=== PATIENT | female | born 1985 | race Caucasian/White ===

== ENCOUNTER 2024-02-15 00:53 | Day surgery (SDC) | payer OTHER, SELFPAY ==
[2024-02-04 14:28] VITALS: BMI 60.1
--- NOTE | 2024-02-04 14:29 | PC.NURSE ---
Report to the Outpatient Waiting Room, entrance under the green pavilion located off [facility], at time _1030_ on date _[id number]_. Planned Procedure Time: _1230_.? Time changes happen often and if your time is changed the preop area will call you the afternoon before. - You and your visitor will be asked to self-screen and do not enter if you have any COVID symptoms. Please call surgeon if you need to reschedule. - A mask is optional within the hospital at this time. Patients may have clear liquids (water, carbonated beverages, clear teas, apple juice) until 3 hours prior to surgery with a maximum of 20 ounces. - No food from midnight until time of surgery and no smoking Take only the following medications with a SIP of water on the morning of surgery: ____Bupropion, Duloxetine, Levothyroxine, and Ashlyna ____ DO NOT STOP ANY OF YOUR OTHER PRESCRIPTION MEDICATIONS PRIOR TO SURGERY EXCEPT THE FOLLOWING Medications to discontinue per physician ___Vitamin d3 Date to take last huvp__[id number] Gsxi skip Thursday's dose of Ozempic next week, No Ozempic for 10 days prior to surgery.. Please no make-up, nail ukrainian, hairspray, perfume, deodorant, or body powder the day of surgery.? No jewelry (including any body piercings) or valuables the day of surgery, leave them at home.? Please take a shower or bath the night before, or the morning of, surgery with an antibacterial soap.? Wear comfortable, loose fitting clothing.? - Jewelry must be removed prior to entering the operating room.? Rings and piercings that are not removed may be cut off. - The hospital will not accept responsibility for valuables.? - Please leave all valuables, including medications, at home the day of surgery. If you are going home after surgery, a licensed explosives truck driver must drive you home.? - NO public transportation without another adult if you receive anesthesia. - We recommend that an adult stay with you for 24 hours following discharge. - We also recommend that you do not drive, make important decision, drink alcoholic beverages, or take any drugs that were not prescribed by your health care provider for at least 24 hours after your discharge time. Follow any additional instructions given to you from your surgeon. Telephone instructions given to __Monserrat__and asked if any additional questions and then verbalized understanding. Patient advised to call surgeon office or pre surgery nurse liaison [phone] if any additional questions.
[2024-02-15] VITALS (8 sets, daily range): BP systolic 115–161; BP diastolic 78–104; PULSE 58–93; RESP 10–18; TEMP 36.2–36.4; O2SAT 97–100
--- NOTE | 2024-02-15 06:38 | WPDHPUPDATE1 ---
History and Physical Update Update Date/Time: 02/15/24 06:38 History and Physical has been reviewed, including an updated exam of the patient. There are NO changes in the patient's condition. Risks, benefits, and alternatives have been discussed and questions answered. Patient agrees to proceed with hysteroscopy with D&C .
[2024-02-15] MEDS: ACETAMINOPHEN 500 MG TABLET 1000 MG PO (11:55)
[2024-02-15] MEDS: LACTATED RINGERS 1,000 ML 30 ML IV CONT (11:55)
--- NOTE | 2024-02-15 12:17 | WPDANESEPPF ---
Anes - Initial Pre Proc Eval Procedure: Operation Date: 02/15/24 12:30 Proposed Procedures p Hysteroscopy Dilation and Curettage - Krystal Miles MD Date/Time: 02/15/24 12:17 Surgeon: Krystal Miles MD Pre Op Diagnosis: abnormal uterine bleeding Patient Data Age: 38 Gender: F Height: 1.63 m Weight: 155.7 kg Last Vital Signs Temp 36.2 C L 02/15/24 12:02 Pulse 93 02/15/24 12:02 Resp 14 02/15/24 12:02 BP 154/90 H 02/15/24 12:02 Pulse Ox 99 02/15/24 12:02 O2 Del Method Room Air 02/15/24 12:02 Allergies Allergy/AdvReac Type Severity Reaction Status Date / Time ciprofloxacin [From Cipro] Allergy Severe breathing Verified 02/15/24 12:07 issues hydrocodone [From Vicodin] AdvReac Mild Vomiting Verified 02/15/24 12:07 Home Medications Medication Instructions Recorded Confirmed Type multivitamin 1 tablet PO DAILY 07/16/21 02/04/24 History L norgest/E estradiol-E estrad 1 tablet PO DAILY #182 ea 06/09/23 02/15/24 Rx 0.15 mg-30 mcg (84)/10 mcg(7) tabs,3mos (Ashlyna) duloxetine 30 mg capsule,delayed 30 mg PO DAILY #90 caps 09/24/23 02/15/24 Rx release (Cymbalta) semaglutide 1 mg/dose (4 mg/3 mL) 1 mg (0.75 mL) subcut WEEKLY #12 mL 10/13/23 02/15/24 Rx subcutaneous pen injector (Ozempic) triamcinolone acetonide 0.5 % 1 applic topical BID #15 grams 12/14/23 02/04/24 Rx topical cream bupropion HCl 300 mg 24 hr tablet, See Rx Instructions .Route 12/15/23 02/15/24 Rx extended release .COMPLEX #90 tabs levothyroxine 150 mcg tablet 150 mcg PO DAILY #90 tabs 01/13/24 02/15/24 Rx cholecalciferol (vitamin D3) 25 25 mcg PO DAILY 02/04/24 02/04/24 History mcg (1,000 unit) capsule (Vitamin D3) Patient hx anesthesia problems: none Family hx anesthesia problems: none Results Review: All pre-operative results and documents have been reviewed as part of the pre-operative evaluation. [facility] Past Medical History Medical History Anxiety Hypothyroid Surgical History Surgical History History of History of colposcopy normal per pt - nm Family History Family History Father No problems noted. Mother No problems noted. Sibling No problems noted. 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 Gender identity (if verbalized by the patient): Female Sexual Orientation (if Verbalized by the Patient): Straight or Heterosexual Spiritual care concerns: No Anes - Eval Final PreProcedure Day of Procedure 02/15/24 12:17 Patient weight: super morbidly obese Heart: regular rate and rhythm Lungs: clear to auscultation Airway: Mallampati scale class II Neurological: alert and oriented Last oral intake: >/= 8 hours ASA classification: III Emergent: no Anesthetic plan: proceed Anesthesia type and monitoring: general GIVS and standard monitoring Results Review: All pre-operative results and documents have been reviewed as part of the pre-operative evaluation. Informed Consent: The patient's anesthetic plan and its attendant risks and benefits were discussed with the
--- NOTE | 2024-02-15 13:33 | W.PM.PROC2 ---
Procedure Note - Detailed Date of Procedure 02/15/24 Pre-op Diagnosis abnormal uterine bleeding Post-op Diagnosis Same Procedure Performed Operative hysteroscopy with endometrial shavings Surgeon Krystal Miles MD Anesthesia General Findings Long vagina due to body habitus. Small, normal appearing cervix. Anteverted uterus, bilateral tubal ostia visualized. Thickened endometrium, shavings obtained as curette device was not long enough to obtain endometrial sample. Good hemostasis at end of case. Fluid deficit: 80cc. Description of Procedure Monserrat was taken to the operating room where she was placed under general endotracheal anesthesia without complications. She was then prepped and draped in the usual sterile fashion in the dorsal lithotomy position with her legs in low Gerry stirrups. A time-out was performed and no perioperative antibiotics were indicated. A bivalve speculum was placed within the vagina where the cervix was easily identified. The anterior lip of the cervix was grasped with a single-tooth tenaculum. The cervix was then serially dilated to allow for the hysteroscope. The hysteroscope was advanced into the uterine cavity with the above findings noted. The Aveta shaver was used to obtain endometrial sampling. Good hemostasis was noted. All instruments were removed from the vagina. Sponge, lap, instrument, and needle counts were correct at the end of the procedure. Patient was awoken from anesthesia and taken to recovery with plans of same-day discharge home. Estimated Blood Loss 10 IV Fluids 700 Pathology Yes (endometrial shavings) Complications No immediate complications Condition Stable Disposition Same day [facility] Billing Surgery - Charge Forward: Surgery Billing
== END 2024-02-15 15:32 | disposition home or self-care (01) ==
PROVIDERS: PCP Family Medicine; Visit Provider Obstetrics & Gynecology
PROC: 0U5B8ZZ Destruction of Endometrium, Via Natural or Artificial Opening Endoscopic (ICD-10-PCS; CPT 58563; principal; 2024-02-15 12:30)
DX: R93.89 Abnormal findings on diagnostic imaging of other specified body structures (principal); F41.9 Anxiety disorder, unspecified; E03.9 Hypothyroidism, unspecified; E66.01 Morbid (severe) obesity due to excess calories; Z68.43 Body mass index [BMI] 50.0-59.9, adult; Z98.890 Other specified postprocedural states; Z79.85 Long-term (current) use of injectable non-insulin antidiabetic drugs; Z80.7 Family history of other malignant neoplasms of lymphoid, hematopoietic and related tissues
CPT/HCPCS: 58558; 88305; A9270; J1100; J2250; J2405; J2704; J3010; J7120

== ENCOUNTER 2024-08-03 14:43 | Outpatient (CLI) | payer OTHER, SELFPAY ==
--- NOTE | ~2024-08-03 | MM_ITS ---
EXAMINATION: MM screening haresh BI w jocelyn HISTORY: Screening mammogram TECHNIQUE: Craniocaudal and mediolateral oblique 3-D tomosynthesis images were obtained and synthetic 2-D images were generated. CAD analysis was submitted and interpreted. COMPARISON: No prior mammogram is available for comparison at this institution. BREAST PARENCHYMAL COMPOSITION:Not Dense. The breasts are almost entirely fatty FINDINGS: No suspicious mass, calcification, or architectural distortion are identified in either davin ast to suggest malignancy. There has been no suspicious interval change. IMPRESSION: No mammographic evidence of malignancy. Recommend routine screening mammography in one year. BI-RADS Category 1: Negative Reviewed, dictated and finalized at location . GRATION SOFTWARE DEVELOPER
== END 2024-08-03 14:44 | disposition home or self-care (01) ==
LOC: MICIMG 14:44
PROVIDERS: PCP Family Medicine; Visit Provider Obstetrics & Gynecology
DX: Z12.31 Encounter for screening mammogram for malignant neoplasm of breast (principal)
CPT/HCPCS: 77063; 77067

== ENCOUNTER 2024-09-27 09:56 | Outpatient (CLI) | payer OTHER, SELFPAY ==
--- NOTE | ~2024-09-27 | XR_ITS ---
Supine and upright views of the abdomen Clinical history: Renal stone Findings: Bowel gas pattern is nonspecific. No evidence for obstruction or free air. No abnormal mass lesion or calcification is seen. Excreted contrast present in the renal collecting systems and urina ry bladder. Osseous structures are intact. Impression: No definite stone seen, but evaluation is markedly limited due to excreted contrast material in the r enal collecting systems and bladder. Reviewed, dictated and finalized at location M. Impression: No definite stone seen, but evaluation is markedly limited due to excreted cont rast material in the renal collecting systems and bladder.
--- NOTE | ~2024-09-27 | CT_ITS ---
CT abdomen pelvis wo/w con Ordering provider: No Gutiérrez [facility] History: 38 years Female with . R10.9 - Unspecified abdominal pain . Comparison: None. Technique: CT abdomen and pelvis with IV and without oral contrast. Automated exposure control and it erative reconstruction technique were employed. The dose-length product was 3426.39 mGy-cm. 130 mL Om nipaque 350 was given IV. Findings: VISUALIZED LOWER CHEST: Focal area of atelectasis versus pneumonia seen in the left lung base. UPPER ABDOMINAL ORGANS: Liver: Slightly enlarged. Gallbladder: Normal. Spleen: Normal. Stomach/duodenum: Normal. Pancreas: Normal. Adrenals: Normal. Kidneys: Possible tiny hyperdensity in the left ureterovesical junction area which may be a stone. Mi nimal fat stranding around the left ureter is noted. Parapelvic cysts are noted in the left kidney. PELVIC ORGANS: The bladder is underfilled. BOWEL AND MESENTERY: Colon: No evidence of diverticulitis. Normal appendix. Small Bowel: Normal. No obstruction. Peritoneum/mesentery: No free air or free fluid. No mesenteric lymphadenopathy. RETROPERITONEUM: Normal aorta. No retroperitoneal lymphadenopathy. MUSCULOSKELETAL: Superficial soft tissues: The superficial soft tissues are normal. Bones: Normal spine. Degenerative disc disease at the level of L5-S1. Sclerotic lesion in the left il iac bone most likely bone island. Follow-up advised. Bilateral sacroiliitis. IMPRESSION: 1. Possible tiny stone in the left ureterovesical junction with fat stranding around the ureter. 2. Left parapelvic renal cysts. 3. Slight hepatomegaly. Reviewed, dictated and finalized at location A.
--- OUTSIDE RECORDS SUMMARY | 2024-09-27 11:04 | XMS_ITS | Clinical Summary ---
Author Organization [facility] Address [facility] [place] [address] Care Team Providers Care Sweet Goods Machine Operator Name Role Phone Unavailable Primary Care Provider Unavailabl e Social History Tobacco Use Types Packs/Day Years Used Date Smoking Tobacco: Never Assessed Comments Unknown Sex and Gender Information Value Date Recorded Sex Assigned at Not on file Legal Sex Female 4:08 PM CDT Gender Identity Not on file Sexual Orientation Not on file Plan of Treatment Health Maintenance Due Date Last Done Comments Cervical Cancer Screening Pa p Smear (Age 30 to 64) Every 3 Years 1983 Annual Physical 11/30/1986 Hepatitis C 11/30/2001 DTaP, Tdap and Td Vaccines ( 1 - Tdap) 11/30/2002 Hepatitis B Vaccines (1 of 3 - 19+ 3-dose series) 11/30/2002 Cervical Cancer Screening Pa p with HPV Testing (Age 30 to 64) Every 5 Years 11/30/2013 Cervical Cancer Screening with HPV 11/30/2013 Mammogram Screening 2023 COVID-19 Vaccine ( - 2023-2 5 season) 2024 HPV Vaccines Aged Out No longer eligi ble based on patient's age to complete this topic Meningococcal B Vaccine Aged Out No l onger eligible based on patient's age to complete this topic Meningococcal Vaccine Aged Out No nik lokesh eligible based on patient's age to complete this topic Pneumococcal Vaccine: Pediat rics (0 to 5 Years) and At-Risk Patients (6 to 49 Years) Aged Out No longer eligible b ased on patient's age to complete this topic RSV Immunizations Under 20 Months Aged Out No longer eligible based on patient's age to complete this topic
--- OUTSIDE RECORDS SUMMARY | 2024-09-27 11:04 | XMS_ITS | Clinical Summary ---
Author Organization [facility] Address [address] [place] [address] Phone Care Team Providers Care Cargo Agent Name Role Phone Navin Miller MD Primary Care Provide r Allergies Active Allergy Reactions Criticality Noted Date Comments Ciprofloxacin-Ciprof lox Hcl Er Other (see Comments) 02/16/2008 Breathing problems Hydrocodone-Acetamin ophen Nausea,Vomiting 06/27/2014 Medications ibuprofen (MOTRIN) 600 MG Tablet Take 600 mg by mouth daily as needed for Pain (headaches). Active ASHLYNA 0.15-0.03 &0.01 MG Tablet Take 1 Tab by mouth daily. 4 02/11/2018 Active fluticasone (FLONASE) 50 MCG/ACT SuspensionIndica tions:Upper respiratory tract infection, unspecified type 1-2 Sprays by Nasal route daily. Use in each nostril as directed. 3 Bottle 3 03/19/2018 Active levothyroxine (SYNTHROID) 150 MCG TabletIndication s:Hypothyroidism due to acquired atrophy of thyroid TAKE ONE TABLET BY MOUTH EVERY DAY 90 Tablet 3 12/21/2020 Active Active Problems Problem Noted Date Diagnosed Date Other fatigue 02/10/2020 Screening for hyperlipidemia 02/10/2020 Hypothyroidism due to acquired atrophy of thyroi d 06/04/2015 Depression 06/04/2015 Obesity, morbid, BMI 50 or higher 09/29/2014 Resolved Problems Problem Noted Date Diagnosed Date Resolved Date Indication for care in labor or delivery 09/29/2014 06/04/2015 Overview (09/29/2014): 09/29/14 sono with MFM - BPP 2/8 and KIT 6 cm. Hypothyroidism 06/04/2015 Immunizations Immunization Administration Dates Next Due Influenza Vaccine greater than 3 yrs 02/23/2019, 02/11/2018,03/19/2016 Influenza Vaccine, Quadrivalent, PF 02/10/2020 TD VACCINE 10/30/2008 Family History Medical History Relation Name Comments Diabetes Maternal Grandfather Cancer Maternal Grandmother Cancer Mother Diabetes Paternal Grandmother Relation Name Status Comments Maternal Grandfather Alive Maternal Grandmother Mother Paternal Grandmother Social History Tobacco Use Types Packs/Day Years Used Date Smoking Tobacco: Never Smokeless Tobacco: Never Tobacco Cessation:Counseling Given: Yes Alcohol Use Standard Drinks/Week Comments No 0 (1 standard drink = 0.6 oz pur e alcohol) PHQ-2 Answer Date Recorded Total Score - Questions 1-9 0 01/30 Sexually Active Control Partners Comments Yes Male Comments No Sex and Gender Information Value Date Recorded Sex Assigned at Not on file 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 Gender Identity Not on file Sexual Orientation Not on file Last Filed Vital Signs Vital Sign Reading Time Taken Comments Blood Pressure 118/80 02/10/2020 7:53 AM CDT Pulse 56 02/10/2020 7:53 AM CDT Temperature 36.7 C (98 F) 02/10/2020 7:53 AM CDT Respiratory Rate 18 02/10/2020 7:53 AM CDT Oxygen Saturation 98% 02/10/2020 7:53 AM CDT Inhaled Oxygen Concentration - - Weight 161.5 kg (356 lb 1.6 oz) 02/10/2020 7:53 AM CDT Height 162.6 cm (5' 4 ) 02/10/2020 7:53 AM CDT Body Mass Index 61.12 02/10/2020 7:53 AM CDT Plan of Treatment Health Maintenance Due Date Last Done Comments Hepatitis C Virus (HCV) Screening 1985 Mammogram 1985 TdaP Immunization 1983 Hepatitis B Immunization (1 of 3 - 19+ 3-dose series) 11/30/2002 HPV/Cotest 11/30/2013 Cervical Cancer Screening (CCS) 12/25/2019 Pap Smear 12/25/2019 12/24/2016, 06/01/2007 Discussion re Starting/Frequency of Mammograms 2023 Influenza Immunization (#1) 01/31/202401/30, 02/23/2019, 02/11/2018, Additional history exists SARS-COV-2 Immunization ( season) 2024 04/04/2021, 09/24/2020, 08/27/2020 Respiratory Syncytial Virus (RSV) Immunization (Adult) (1 - 1-dose 75+ series) 11/30/2058 Meningococcal Immunization (ACWY) Aged Out No longer eligible based on patient's age to complete this topic Pneumococcal Immunization Combined Aged Out No longer eligible based on patient's age to complete this topic Rotavirus Immunization Aged Out No lo nger eligible based on patient's age to complete this topic Procedures Procedure Name Priority Date/Time Associated Diagnosis Comments SMEAR, THIN PREP PAP SCREEN Routine 12/24/2016 from Last 3 Months or Most Recently Relevant to Health Maintenance Results * SMEAR, THIN PREP PAP SCREEN (12/24/2016) Specimen of unknown material (specimen) Faviola Whittington MD POINT OF CARE TESTING (MANUAL ) Final Result from Last 3 Months or Most Recently Relevant to Health Maintenance Insurance MEDICAID FORREST Advance Directives * Full Code (Latest Code Status on File) Date Activated Date Inactivated Comments 10/01/2014 6:49 AM 10/01/2014 7:20 PM Full Code: FULL ARREST: Attempt Resuscitation/CPR and use intubation and mechanical ventilation as indicated. PRE-ARREST: Use all measures to stabilize patient. * Full Code Date Activated Date Inactivated Comments 09/29/2014 12:04 PM 09/29/2014 6:04 PM Full Code: FULL ARREST: Attempt Resuscitation/CPR and use intubation and mechanical ventilation as indicated. PRE-ARREST: Use all measures to stabilize patient. * Full Code Date Activated Date Inactivated Comments 09/15/2014 12:52 PM 09/15/2014 5:47 PM Full Code: FULL ARREST: Attempt Resuscitation/CPR and use intubation and mechanical ventilation as indicated. PRE-ARREST: Use all measures to stabilize patient. * Full Code Date Activated Date Inactivated Comments 08/30/2014 11:40 AM 08/30/2014 4:43 PM Full Code: FULL ARREST: Attempt Resuscitation/CPR and use intubation and mechanical ventilation as indicated. PRE-ARREST: Use all measures to stabilize patient. Care Teams Cargo Agent Relationship Specialty Start Date End Date Navin Miller MD [address] [facility] [place] [address] PCP - General Family Medicine 09/05/14
== END 2024-09-27 09:57 | disposition home or self-care (01) ==
PROVIDERS: PCP Family Medicine; Visit Provider Physician Assistant Medical
DX: N28.1 Cyst of kidney, acquired (principal); R16.0 Hepatomegaly, not elsewhere classified
CPT/HCPCS: 74018; 74178; Q9967

== ENCOUNTER 2025-05-08 09:22 | Outpatient (CLI) | payer OTHER, SELFPAY ==
--- NOTE | ~2025-05-08 | XR_ITS ---
EXAMINATION: XR shoulder LT min 2V, 05/08/2025 9:30 INTERIOR DESIGN CONSULTANT HISTORY: fall 3 weeks ago, PAIN LT SHOULDER RADIATING DOWN ARM COMPARISON: No comparisons available. Findings: No acute fracture or malalignment. No significant degenerative changes. Soft tissues unremarkable. Impression: No acute fracture or malalignment. Reviewed, dictated and finalized at location P. RIOR DESIGN CONSULTANT Impression: No acute fracture or malalignment.
== END 2025-05-08 09:23 | disposition home or self-care (01) ==
PROVIDERS: PCP Family Medicine
DX: M25.512 Pain in left shoulder (principal)
CPT/HCPCS: 73030